=== PATIENT | male | born 1990 | race Hispanic/Latino ===

== ENCOUNTER 2018-08-24 08:25 | Outpatient (CLI) | payer OTHER | END 2018-08-24 08:26 | disposition home or self-care (01) | LOC: C.PAT 08:25 | DX: K60.0 Acute anal fissure (principal) ==

== ENCOUNTER 2018-09-01 06:06 | Day surgery (SDC) | payer OTHER ==
[2018-08-24 08:44] VITALS: BMI 21.5
[2018-09-01] MEDS ORDERED: Lidocaine/Epinephrine 1% 1:100000 10 ML IJ ONE (07:19)
--- NOTE | 2018-09-01 07:28 | CP.SDSHP ---
Same Day Surgery H & P - History Proposed Procedure: fissurectomy sphintorotomy hemorhoidectomy Pre-Op Diagnosis: anal fissure stenosis hemorrhoids - Allergies Allergies: Allergies No Known Allergies Allergy (Verified 08/24/18 08:37) - Physical Exam Vital Signs: Vital Signs 09/01/18 09/01/18 06:35 06:47 Temperature 97.4 F L 97.4 F L Pulse Rate 77 77 Respiratory 18 18 Rate Blood Pressure 96/59 L 96/59 L O2 Sat by Pulse 99 99 Oximetry - Date & Time Date: 09/01/18 Time: 07:28 Short Stay Discharge - Short Stay Discharge Admitting Diagnosis/Reason for Visit: ACUTE ANAL FISSURE Disposition: HOME/ ROUTINE
[2018-09-01] MEDS ORDERED: Midazolam 2 MG/2 ML VIAL ONE (07:39)
[2018-09-01] MEDS ORDERED: Propofol 10 mg/ml Inj (20 ML) ONE (07:39)
[2018-09-01] MEDS ORDERED: Ciprofloxacin 400mg/200ml D5W 400 MG/200 ML BAG IVPB ONE (07:52)
[2018-09-01] MEDS ORDERED: Bupivacaine 0.25% 20 ML INJ IJ ONE (07:52)
[2018-09-01] MEDS ORDERED: HYDROmorphone 0.5 mg/0.5 ml ISec IVP PRN (08:38)
--- NOTE | 2018-09-01 08:41 | PCM.SURG1 ---
Surgeon's Initial Post Op Note - Surgeon's Notes Surgeon: Dr. Pratt Grinder Set Up Operator Jig: Dr. Beatty PGY3 Type of Anesthesia: General LMA Pre-Operative Diagnosis: anal fissure Operative Findings: see dictation Post-Operative Diagnosis: same Operation Performed: lateral sphincterotomy, fissurectomy Specimen/Specimens Removed: anal fissure Estimated Blood Loss: EBL {In ML}: 5 Blood Products Given: N/A Drains Used: No Drains Post-Op Condition: Good Date of Surgery/Procedure: 09/01/18 Time of Surgery/Procedure: 08:41
[2018-09-01 08:50] VITALS: O2SAT 100
[2018-09-01 10:47] VITALS: BP 95/51; PULSE 75; RESP 16; TEMP 97.7
--- NOTE | 2018-09-01 20:13 | OP ---
PROCEDURE DATE: 09/01/2018 PREOPERATIVE DIAGNOSES: Anal fissure, anal stenosis, and hemorrhoids. POSTOPERATIVE DIAGNOSES: Anal fissure, anal stenosis, and hemorrhoids. PROCEDURES: Anal fissurectomy, partial lateral superficial internal sphincterotomy, and anoplasty. 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 ANESTHESIA ADMINISTERED BY: Matt Diaz DO FINDINGS: This is a 28-year-old gentleman, who has a long history of anal pain after bowel movement and bleeding. The findings were of a posterior anal fissure with external hemorrhoidal tags and hypertrophied anal papillae with some exposure of the sphincter complex with [id number] stenosis. He has small internal hemorrhoids. The procedure with possible risks, complications, especially bleeding, infection, and anal dysfunction were discussed in detail with him and informed consent was obtained. DESCRIPTION OF PROCEDURE: After satisfactory general anesthesia, the patient in the stirrups, the perineum was prepped and draped in sterile fashion and the above findings were noted with a small Hill-Marquez retractor in place. A partial lateral superficial internal sphincterotomy was performed at the lateral location and the incision was closed with 3-0 Chromic gut suture. The large skin tags in the posterior midline with the fissure were excised after placing a medium-sized retractor. The anal hypertrophied papillae was fulgurated and excised and the mucosa was slightly undermined and all the excess skin tags were removed and then closed with 3-0 Chromic suture advancing the skin into an anoplasty fashion to cover the defect and the anal canal was allowing the medium Hill-Maqruez retractor by two fingers. The bleeding was controlled with 3-0 Chromic gut sutures and Surgicel placed in the anal canal. Estimated blood loss less than 5 mL. The patient tolerated the procedure and transferred to recovery room in stable condition. Eran Pratt MD
== END 2018-09-01 10:44 | disposition home or self-care (01) ==
LOC: C.SDS 06:06
PROVIDERS: ATTEND Colon & Rectal Surgery
DX: K60.0 Acute anal fissure (principal); K60.2 Anal fissure, unspecified; K64.8 Other hemorrhoids
CPT/HCPCS: 46200; 88305; J0744; J1885; J2001; J2250; J2405; J2704; J3010